=== PATIENT | female | born 1990 | race African-American/Black ===

== ENCOUNTER 2017-07-31 08:08 | Emergency (ER) | payer MEDICAID ==
[~2017-07-31] VITALS: Ht 157.5 cm; Wt 67.3 kg
[~2017-07-31 08:08] MED LIST: CEPH-571 PO; GUAI120015 PO
[2017-07-31 08:44] VITALS: BP 119/83
== END 2017-07-31 08:46 | disposition home or self-care (01) ==
LOC: ER 08:09
DX: M62.830 Muscle spasm of back (principal); I10 Essential (primary) hypertension
CPT/HCPCS: 99281